=== PATIENT | male | born 1935 | race Caucasian/White ===

== ENCOUNTER → 2021-04-17 | Outpatient (CLI) | payer MEDICARE, OTHER ==
[~2021-04-17] MED LIST: APRESOLINE 25MG25 MG PO; CIPRO 500MG TA500 MG PO; FLOMAX 0.40.4 MG/CAP PO; HYZAAR 12.5 MG-1 TA1 PO; INCRUSE EL62.5 MCG/A IH; LASIX 40MG TABL40 MG PO; LEVAQUIN 5500 MG/TA1 PO; LIPITOR 10MG10 MG PO; NEURONTIN100 MG/CAP PO; PHOSLO667 MG PO; POTASSIUM20 MEQ PO; PREDNISONE10 MG PO; PRILOSEC PO; PROSCAR 5MG5 MG PO; PROTONIX 40MG T40 MG PO; RAPAFLO8 MG PO; REMERON30 MG PO; RT ADVAIR 228 DISKUS IH; SINGULAIR 110 MG/TAB PO; THEO-DUR 3300 MG/TAB PO; TOPROL XL 25MG25 MG PO; TOPROL XL 50MG50 MG PO; VANTIN 200200 MG/TAB PO; XOPENEX 0.0.63 MG/3 IH; ZOLOFT 100MG100 MG PO; ZOLOFT 50MG50 MG PO
== END ==
LOC: COL.VAS 11:53
DX: N18.4 Chronic kidney disease, stage 4 (severe) (principal)

== ENCOUNTER 2021-10-17 15:28 | Inpatient (IN) | payer MEDICARE, OTHER ==
[~2021-10-17] VITALS: Ht 190.5 cm; Wt 96.7 kg
[2021-10-17 16:15] LABS: MEAN CELL VOLUME 97 fl (80.0-100.0); MEAN CORPUSCULAR HGB CONC 33 g/dl (33.0-37.0); MEAN PLATELET VOLUME 10.7 fl (7.4-10.4); PLATELET COUNT 178 K/mm3 (130-400); REDCELL DISTRIBUTION WIDTH-CV 15.1 % (11.5-14.5)
[2021-10-17 16:17] LABS: HEMATOCRIT 26.2 % (42.0-52.0); HEMOGLOBIN 8.7 g/dl (13.5-18.0); MEAN CORPUSCULAR HEMOGLOBIN 32 pg (27-31)
[2021-10-17 16:36] LABS: ALBUMIN 3.3 gm/dL (3.4-4.8); BILIRUBIN,TOTAL 0.5 mg/dL (0.2-1.2); CALCIUM 8.7 mg/dL (8.4-10.2); CREATININE, serum 11.31 mg/dL (0.72-1.25); POTASSIUM 4.3 mmol/L (3.5-4.5); TOTAL PROTEIN 7.2 gm/dL (6.2-8.1)
[2021-10-17 16:58] LABS: LYMPHOCYTE 7 % (20.0-51.0); NEUTROPHILS 69 % (42.0-75.2)
[2021-10-17 16:59] LABS: ANISOCYTOSIS 1+; PLATELET ESTIMATE NORMAL (NORMAL)
[2021-10-17 22:43] VITALS: BP 153/65; PULSE 87; TEMP 98.1
[2021-10-18 04:47] VITALS: BP 125/71; PULSE 84; TEMP 97.9
--- NOTE | 2021-10-18 06:30 | NUR ---
THE PATIENT HAD AN UNEVENTFUL NIGHT
--- NOTE | 2021-10-18 08:23 | NUR ---
Patient laying in bed upon entering the room. Patient is A&Ox4, and is on his baseline oxygen at 4L. Patient did have a run of V-Tach according to tele. Matilda Peoples called, cardiology consult and EKG ordered. Patient is asymptomatic and VSS. Patient is currently dialyzing.
[2021-10-18 08:54] VITALS: BP 113/48; PULSE 69; TEMP 99.1
[2021-10-18 08:58] LABS: HEMATOCRIT 22.5 % (42.0-52.0); HEMOGLOBIN 7.3 g/dl (13.5-18.0); MEAN CELL VOLUME 98 fl (80.0-100.0); MEAN CORPUSCULAR HEMOGLOBIN 32 pg (27-31); MEAN CORPUSCULAR HGB CONC 32 g/dl (33.0-37.0); PLATELET COUNT 146 K/mm3 (130-400); REDCELL DISTRIBUTION WIDTH-CV 15.1 % (11.5-14.5)
[2021-10-18 09:02] LABS: ALBUMIN 2.9 gm/dL (3.4-4.8); CALCIUM 8.1 mg/dL (8.4-10.2); CREATININE, serum 13.31 mg/dL (0.72-1.25); PHOSPHOROUS 5.5 mg/dL (2.3-4.7); POTASSIUM 4.7 mmol/L (3.5-4.5)
[2021-10-18 09:03] LABS: INR 1.2 (0.8-3.0); PROTHROMBIN TIME 13.2 SECONDS (9.7-12.8)
[2021-10-18 09:37] LABS: LYMPHOCYTE 19 % (20.0-51.0); METAMYELOCYTE 1 % (0-0); NEUTROPHILS 56 % (42.0-75.2); PLATELET ESTIMATE NORMAL (NORMAL)
[2021-10-18 09:38] LABS: ANISOCYTOSIS 1+
--- NOTE | 2021-10-18 09:48 | NUR ---
The patient is COVID positive. HUBERT contacted the patient's , Viri (ph#[phone]), to discuss discharge plan. The patient lives in [place] with his . Viri reports that the patient is normally independent with ADLs and has a walker and wheelchair. Viri reports that the patient had just been set up with home health from [facility], because of a sore. She reports that they did not get to see him though, because she had to send him to the hospital. The patient's PCP is Dr. Itz Jennings and he receives his medications from [facility]. The patient's DPOA-HC is in EMR and it designates his . The alternate is their daughter, Miroslava Gonzalez (ph#[phone]). Miroslava also lives in [place]. Viri requests that we contact her first with any updates. SW notified the patient's RN. Viri reports that that their home is totally set up and she is fine with the patient returning home with her upon discharge. The patient is currently on 5 liters of oxygen. PT/OT have been ordered. Awaiting evals. *Discharge plan: Tentatively home with . Will await therapy's evals*
[2021-10-18 11:54] VITALS: BP 126/58; PULSE 80; TEMP 99.9
--- NOTE | 2021-10-18 11:55 | NUR ---
PATIENT TOLERATED HD TX WITH 1.5L FLUID REMOVAL. POOR BLOOD FLOW RATES & TOUBLESHOOTING UNSUCCESSFUL, DR. ROJAS NOTIFIED & ORDERED ACTIVASE TO DWELL IN CATHETER PORTS POST TX. 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 NEXT HD TX PLANNED ON Friday10/20/21 @ 0800.
--- NOTE | 2021-10-18 14:59 | NUR ---
Patient has done well so far, and only c/o feeling slightly feverish. Patient is running a low grade temp of 99.9. PRN tylenol was administered.
[2021-10-18 16:00] VITALS: BP 118/51; PULSE 77; TEMP 97.6
--- NOTE | 2021-10-18 19:17 | NUR ---
Clean dressing applied to stage II ulcer on patient's right buttock.
[2021-10-18 20:01] VITALS: BP 113/55; PULSE 82; TEMP 97.5
--- NOTE | 2021-10-18 23:18 | NUR ---
Patient assessed around 2019. Alert and oriented, able to make needs known. On oxygen at 4 L/min via NC, which is baseline for patient. Continues to recieve IV ABX to peripheral INT to right forearm per orders. Voices no questions, needs, or concerns at this time. In bed with call light within reach.
[2021-10-19] VITALS (7 sets, daily range): BP systolic 103–144; BP diastolic 50–74; PULSE 51–76; TEMP 98–98.7
--- NOTE | 2021-10-19 05:23 | NUR ---
Continues on oxygen at 4 L/min via NC. Voices no questions, needs, or concerns at this time. In bed with call light within reach.
--- NOTE | 2021-10-19 09:56 | NUR ---
OT recommends home with home health vs family assist. PT recommends home with family assist. HUBETR contacted Maria Del Carmen at [facility] out of [place] to confirm services. Maria Del Carmen reports that they had accepted the patient for services and are able to start them when the patient discharges. She reports that they are able to do PT/OT too. HUBERT faxed updates to [facility]. The patient is currently on 4 liters of oxygen. SW to continue to monitor. [facility]: ph#[phone] ���������� fax#[phone] *Discharge plan: home with and home health*
--- NOTE | 2021-10-19 10:59 | NUR ---
Pt. progressing w/ plan of care. AM assessment done and medications administered. Pt. refused calcium acetate w/ AM meds because he already ate and it was too late for this RN to give the medication. Pt. has left upper arm AV fistula, palpable thrill noted. Pt. had a BM this AM, stool sample sent to lab. Pt. worked with PT/OT this AM, physical therapist Yaquelin reports the pt. became short of breath while ambulating. Needs addressed, call light and belongings in reach.
[2021-10-19 13:06] LABS: BASO % 0.4 % (0.0-2.0); EOS % 0.2 % (0.0-4.0); GRAN # 6.2 K/mm3 (1.4-6.5); GRAN % 74.5 % (42.2-75.2); LYMPH % 11.7 % (20.0-51.0); MEAN CELL VOLUME 98 fl (80.0-100.0); MEAN CORPUSCULAR HGB CONC 33 g/dl (33.0-37.0); MEAN PLATELET VOLUME 10.8 fl (7.4-10.4); MONO % 12.1 % (1.7-9.3); PLATELET COUNT 148 K/mm3 (130-400); REDCELL DISTRIBUTION WIDTH-CV 15.4 % (11.5-14.5)
[2021-10-19 13:20] LABS: ALBUMIN 2.9 gm/dL (3.4-4.8); BILIRUBIN,TOTAL 0.5 mg/dL (0.2-1.2); C-REACTIVE PROTEIN 7.58 mg/dL (0.00-0.50); CALCIUM 8.5 mg/dL (8.4-10.2); CREATININE, serum 10.03 mg/dL (0.72-1.25); PHOSPHOROUS 5.1 mg/dL (2.3-4.7); POTASSIUM 4.5 mmol/L (3.5-4.5); TOTAL PROTEIN 6.3 gm/dL (6.2-8.1)
[2021-10-19 13:24] LABS: HEMATOCRIT 23.5 % (42.0-52.0); HEMOGLOBIN 7.7 g/dl (13.5-18.0); MEAN CORPUSCULAR HEMOGLOBIN 32 pg (27-31)
--- NOTE | 2021-10-19 23:10 | NUR ---
Patient assessed around 1999. Alert and oriented x 4, and able to make needs known. Denies having pain and discomfort. Reports SOB and dyspnea with exertion, denies at rest. On oxygen at 4 L/min via NC. Voices no questions, needs, or concerns at this time. In bed with call light within reach.
--- NOTE | 2021-10-20 04:27 | NUR ---
Patient has been in bed with call light within reach. Continues on oxygen at 4 L/min via NC, patient's baseline. Voices no questions, needs, or concerns at this time. In bed with call light within reach.
[2021-10-20 04:48] VITALS: BP 139/57; PULSE 92; TEMP 97.6
[2021-10-20 08:23] VITALS: BP 129/57; PULSE 71; TEMP 98.6
--- NOTE | 2021-10-20 09:30 | NUR ---
Pt. called for help to the bathroom, pt. ambulated to the bathroom w/ assistance. Pt. had a BM and ambulated back to his bed. Pt. became short of breath and needed to sit at the edge of the bed for three minutes to catch his breath. After some time the pt. was able to catch his breath. Plan for dialysis this AM. Needs addressed, call light and belongings in reach.
[2021-10-20 10:53] LABS: BASO % 0.2 % (0.0-2.0); EOS # 0.1 K/mm3 (0.0-0.7); EOS % 0.6 % (0.0-4.0); GRAN # 5.9 K/mm3 (1.4-6.5); GRAN % 65.1 % (42.2-75.2); LYMPH # 1.7 K/mm3 (1.2-3.4); LYMPH % 18.2 % (20.0-51.0); MEAN CELL VOLUME 98 fl (80.0-100.0); MEAN CORPUSCULAR HGB CONC 32 g/dl (33.0-37.0); MEAN PLATELET VOLUME 10.8 fl (7.4-10.4); MONO # 1.4 K/mm3 (0.1-0.6); MONO % 14.9 % (1.7-9.3); PLATELET COUNT 153 K/mm3 (130-400); RED BLOOD COUNT 2.47 M/mm3 (4.20-5.60); REDCELL DISTRIBUTION WIDTH-CV 15.2 % (11.5-14.5)
[2021-10-20 10:56] LABS: HEMATOCRIT 24.1 % (42.0-52.0); HEMOGLOBIN 7.8 g/dl (13.5-18.0); MEAN CORPUSCULAR HEMOGLOBIN 32 pg (27-31)
[2021-10-20 11:14] LABS: ALBUMIN 2.8 gm/dL (3.4-4.8); C-REACTIVE PROTEIN 6.59 mg/dL (0.00-0.50); CALCIUM 8.1 mg/dL (8.4-10.2); CREATININE, serum 11.88 mg/dL (0.72-1.25); PHOSPHOROUS 6.3 mg/dL (2.3-4.7); POTASSIUM 3.7 mmol/L (3.5-4.5)
[2021-10-20 12:00] VITALS: BP 108/56; PULSE 69; TEMP 98.5
--- NOTE | 2021-10-20 13:17 | NUR ---
PATIENT TOLERATED HD TX WITH 700 ML OF FLUID REMOVED, ATTEMPTED INCREASED UF GOAL WITH HYPOTENSION. PATIENT COUGHED UP BRIGHT TRED BLOODY MUCUS X2 DURING TX. NEXT PLANNED HD TX ON Friday10/22/21 @ 0800.
[2021-10-20 13:34] VITALS: BP 134/70; PULSE 77; TEMP 99
--- NOTE | 2021-10-20 13:34 | NUR ---
Pt. progressing w/ plan of care. Pt. just finished dialysis. During binder caser Rupali reports pt. expectorated to large amounts of mucus of bloody sputum. Nurse Practitioner Matilda in to see patient at this time and is aware. This RN asked FELIPE Grey if this RN should hold lovenox. FELIPE Grey would like to hold lovenox at this time.
--- NOTE | 2021-10-20 15:33 | NUR ---
Pt. expressing worries regarding his pneumonia and bloody sputum. Cup at bedside to obtain hemoptysis per Dr. Murray orders. This RN explained to pt. he must continue to cough, deep breathe, and brush his teeth frequently. Pt. also encouraged to turn and reposition to get off his buttocks where his pressure sore is located. Pt. was originally resistant to getting off his buttocks saying "it will be fine." This RN encouraged pt. she will be in shortly to place pt. off buttocks to prevent worsening pressure injury.
[2021-10-20 16:07] VITALS: BP 118/56; PULSE 76; TEMP 98.9
--- NOTE | 2021-10-20 18:48 | NUR ---
Pt. ate his chicken and fruit for dinner. Pt. did want to take calcium acetate this evening because pt. finished dinner and this RN was going to bring in medication and the pt. said he "didn't need it." Needs addressed, call light and belongings in reach. Report given to CHRISSIE Solano.
[2021-10-20 20:34] VITALS: BP 129/50; PULSE 69; TEMP 98
--- NOTE | 2021-10-20 23:07 | NUR ---
Patient assessed around 1954. Peripheral INT to right forearm leaking. Taken out and started new one to right AC. Continues to report SOB and dyspnea with exertion. Continues on oxygen at 4 L/min via NC. Voices no questions, needs, or concerns at this time. In bed with call light within reach.
[2021-10-21 00:22] VITALS: BP 137/67; PULSE 94; TEMP 98.2
[2021-10-21 04:32] VITALS: BP 133/53; PULSE 64; TEMP 97.9
--- NOTE | 2021-10-21 06:03 | NUR ---
Patient has been resting in bed with call light within reach. Has denied pain and discomfort this shift. Voices no questions, needs, or concerns. Continues on oxygen at 4 L/min via NC.
--- NOTE | 2021-10-21 07:00 | NUR ---
PT IS LAYING IN BED, DENIES ANY NEEDS AT THIS TIME.
[2021-10-21 08:29] VITALS: BP 130/75; PULSE 62; TEMP 97.8
--- NOTE | 2021-10-21 09:15 | NUR ---
UPON ENTRY IT WAS MADE AWARE THAT THE PATIENT DID NOT HAVE AN IV. IT HAD "FALLEN OUT". TEGADERM WAS INTACT, HOWVER THE IV CATHETER WAS ON THE FLOOR. THIS RN GAVE THE PATIENT HIS MORNING MEDICATION, AND THEN ATTEMPTED AN IV RESTART. DURING IV START, LAB WAS AVAILABLE AND STATED HE WAS GOING TO BE DRAWN DURING DIALYSIS, HOWEVER, THERE IS NO PLAN FOR DIALYSIS TODAY HE HAD IT YESTERDAY. DURING IV INITIATION, THIS RN CECIL LABS FROM THE INITIAL IV START. PT TOLERATED WELL. IV IN RIGHT FOREARM, DENIES ANY PAIN AT THE NEW IV SIGHT. COVERED WITH TEGADERM AND WRAPPED SIGHT WITH CEM WRAP. DURING ASSESSMENT IT WAS OBVIOUS THE PATIENT WAS TRYING TO TAKE MORE BREATHS THROUGH HIS NOSE TO GET MORE OXYGEN, HE STATES THAT HE IS HAVING A SLIGHT DIFFICULT TIME GETTING O2, CHECKED O2 SATS, PATIENT WAS SATTING AT 83%, THIS RN TURNED UP THE O2 FROM BASELINE SETTING OF 4 TO 5, HOWEVER THE O2 SAT WAS NOT INCREASING VERY MUCH, INCREASED TO 7L TO HELP PATIENT RECOVER TO A BASELINE 92%, ON 7L THE PATIENT WAS SATURATING 96%, SO THIS RN TITRATED O2 BACK DOWN TO 6L TO KEEP O2 SATS ABOVE 92%. PT TOLERATING 6L WITHOUT PROBLEMS. WILL CLOSELY MONITOR O2 SATURATIONS ON THIS PATIENT. NO FURTHER CONCERNS.
[2021-10-21 10:34] LABS: BASO % 0.3 % (0.0-2.0); EOS % 0.5 % (0.0-4.0); GRAN # 4.5 K/mm3 (1.4-6.5); GRAN % 61.7 % (42.2-75.2); LYMPH # 1.6 K/mm3 (1.2-3.4); LYMPH % 22.4 % (20.0-51.0); MEAN CELL VOLUME 98 fl (80.0-100.0); MEAN CORPUSCULAR HGB CONC 32 g/dl (33.0-37.0); MEAN PLATELET VOLUME 10.7 fl (7.4-10.4); MONO # 1.1 K/mm3 (0.1-0.6); MONO % 14.3 % (1.7-9.3); PLATELET COUNT 158 K/mm3 (130-400); RED BLOOD COUNT 2.43 M/mm3 (4.20-5.60); REDCELL DISTRIBUTION WIDTH-CV 15.1 % (11.5-14.5)
[2021-10-21 10:43] LABS: HEMATOCRIT 23.9 % (42.0-52.0); HEMOGLOBIN 7.6 g/dl (13.5-18.0); MEAN CORPUSCULAR HEMOGLOBIN 31 pg (27-31)
[2021-10-21 10:46] LABS: ALBUMIN 2.7 gm/dL (3.4-4.8); CALCIUM 8.1 mg/dL (8.4-10.2); CREATININE, serum 7.64 mg/dL (0.72-1.25); PHOSPHOROUS 4.7 mg/dL (2.3-4.7); POTASSIUM 3.6 mmol/L (3.5-4.5)
[2021-10-21 11:23] VITALS: BP 119/48; PULSE 66; TEMP 97.5
[2021-10-21 15:55] VITALS: BP 150/57; PULSE 68; TEMP 97.5
[2021-10-21 19:47] VITALS: BP 140/61; PULSE 70; TEMP 97.3
[2021-10-21] MEDS ORDERED: NICORETTE GUM2 MG PO (21:30)
[2021-10-22 00:20] VITALS: BP 140/64; PULSE 66; TEMP 98.2
[2021-10-22 03:50] VITALS: BP 154/111; BP 158/64; PULSE 66; TEMP 98
--- NOTE | 2021-10-22 05:34 | NUR ---
PT REMAINED ON 4L OVER NIGHT, CONTINUES TO DESAT ON AMBULATION. ABX ADMINISTERED ORDERED. COUGHING REMAINS WITH HEMOPTYOSIS. SCANT BLOOD. PT DENIES N,V,D. ALL NEEDS MET THIS SHIFT. CALL LIGHT WITHIN REACH.
[2021-10-22 08:43] VITALS: BP 155/61; PULSE 70; TEMP 98
--- NOTE | 2021-10-22 11:46 | NUR ---
Rehana, with Dr. Georges, notified SW that the patient is ready to discharge today and they have everything arranged for the patient to receive dialysis at [facility] in [place]. SW contacted the patient's , Viri. Viri confirms that the patient already has continuous home oxygen from [facility] and she is all good with the patient resuming home health from [facility]. SW read the IM form outloud to Viri. Viri verbalized understanding and gave SW approval to sign the form on her behalf. The patient is to discharge back home with his today, 10/22, with home health services for prison/PT/OT from [facility] out of [place]. HUBERT notified Maria Del Carmen at [facility]. SW to fax discharge orders to [facility], once finalized. No additional needs at this time.
[2021-10-22] MEDS ORDERED: DOXYCYCLINE HY100 MG PO ×2 (12:31→12:39)
[2021-10-22] MEDS ORDERED: CEFTIN500 MG PO ×2 (12:31→12:39)
[2021-10-22] MEDS ORDERED: DECADRON6 MG PO ×2 (12:32→12:39)
[2021-10-22 12:35] VITALS: BP 136/77; PULSE 70; TEMP 97.8
--- NOTE | 2021-10-22 14:00 | NUR ---
THE PATIENT IS DISCHARGING. THE PATIENT'S IV HAS INFILTRATED, SO UNABLE TO GIVE IV MEDICATIONS. DISCHARGING PATIENT TO THE CARE OF HIS AND DAUGHTER. NO OTHER CONCERNS AT THIS TIME.
--- NOTE | 2021-10-22 15:38 | NUR ---
PT HAS DISCHARGE. DISCHARGE EDUCATION DONE WITH IN THE ER PARKING LOT.
== END 2021-10-22 15:39 | disposition home or self-care (01) | DRG 177 ==
LOC: COL.ER 15:28 → MEDICAL 16:56
PROVIDERS: Family Medicine; Internal Medicine Sleep Medicine; ADMIT Internal Medicine Nephrology
PROC: XW033E5 Introduction of Remdesivir Anti-infective into Peripheral Vein, Percutaneous Approach, New Technology Group 5 (ICD-10-PCS; principal; 2021-10-17)
PROC: 5A1D70Z Performance of Urinary Filtration, Intermittent, Less than 6 Hours Per Day (ICD-10-PCS; 2021-10-17)
DX: U07.1 COVID-19 (principal); J12.82 Pneumonia due to coronavirus disease 2019; N18.6 End stage renal disease; J96.21 Acute and chronic respiratory failure with hypoxia; N25.81 Secondary hyperparathyroidism of renal origin; I12.0 Hypertensive chronic kidney disease with stage 5 chronic kidney disease or end stage renal disease; E87.2 Acidosis; D63.1 Anemia in chronic kidney disease; I48.91 Unspecified atrial fibrillation; F32.A Depression, unspecified; G47.00 Insomnia, unspecified; N40.0 Benign prostatic hyperplasia without lower urinary tract symptoms; E78.5 Hyperlipidemia, unspecified; G62.9 Polyneuropathy, unspecified; K59.00 Constipation, unspecified; I27.20 Pulmonary hypertension, unspecified; J43.9 Emphysema, unspecified; Z99.81 Dependence on supplemental oxygen; Z99.2 Dependence on renal dialysis; Z85.46 Personal history of malignant neoplasm of prostate; Z79.52 Long term (current) use of systemic steroids; Z87.891 Personal history of nicotine dependence; Z23 Encounter for immunization
CPT/HCPCS: J0248; J0696; J1644; J1650; J2997; J7030; J8540; Q5105